=== PATIENT | female | born 1945 | race Caucasian/White ===

== ENCOUNTER 2016-12-03 06:36 | Day surgery (SDC) | payer BC ==
[2016-11-29 09:37] LABS: BASOPHILS 0.6 %; BASOPHILS ABSOLUTE 0.03 10/3/uL (0.0-0.16); EOSINOPHILS 5.7 %; EOSINOPHILS ABSOLUTE 0.29 10/3/uL (0.0-0.53); HEMATOCRIT 25.6 % (36.0-48.0); HEMOGLOBIN 8.4 g/dL (12.0-16.0); IMMATURE GRANULOCYTES 0.2 %; IMMATURE GRANULOCYTES ABSOLUTE 0.01 10/3/uL (0.0-0.11); LYMPHOCYTES 16.7 %; LYMPHOCYTES ABSOLUTE 0.85 10/3/uL (0.67-4.30); MANUAL DIFF NO %; MEAN CORPUS HGB CONC 32.8 g/dL (32.0-36.0); MEAN CORPUSCULAR HEMOGLOB 30.5 pg (26.0-34.0); MEAN CORPUSCULAR VOLUME 93.1 fL (80-100); MEAN PLATELET VOLUME 9.3 fL (9.2-13.0); MONOCYTES 14.3 %; MONOCYTES ABSOLUTE 0.73 10/3/uL (0.21-1.20); NEUTROPHILS 62.5 %; NEUTROPHILS ABSOLUTE 3.19 10/3/uL (2.02-8.40); PLATELET COUNT 327 10/3/uL (150-400); RED CELL COUNT 2.75 10/6/uL (4.0-5.6); WHITE BLOOD CELLS 5.1 10/3/uL (4.5-10.5)
[2016-11-29 10:02] LABS: BUN (BLOOD UREA NITROGEN) 25 MG/DL (6-23); CALCIUM, SERUM 8.8 MG/DL (8.5-10.4); CHLORIDE, SERUM 103 MMOL/L (96-112); CO2 (CARBON DIOXIDE) 23 MMOL/L (24-34); CREATININE 1.78 MG/DL (0.55-1.02); GFR AFRICAN AMERICAN 32 ML/MIN (>=60); GFR NON AFRICAN AMERICAN 28 ML/MIN (>=60); GLUCOSE, SERUM 113 MG/DL (60-99); POTASSIUM, SERUM 4.2 MMOL/L (3.5-5.3); SODIUM, SERUM 136 MMOL/L (135-148)
--- NOTE | ~2016-12-03 | OP ---
[facility] Of [facility] [address] [facility] [place]. [address] NAME: HANH SALGUERO : 43 STATUS : REG [facility]#: [id number] AGE: 71 ADM/REG DATE : 12/03/16 MR#: [id number] REPORT SERV DATE: 12/03/16 DICTATED BY: OMERO ANN DATE: 12/03/16 REPORT STATUS : Draft TRANSCRIBED BY: MODL DATE: 12/03/16 DATE OF PROCEDURE: 12/03/2016 SERVICE: Otolaryngology. SURGEON: Omero Ann MD. PREOPERATIVE DIAGNOSIS: Possible tracheal stenosis. POSTOPERATIVE DIAGNOSES: 1. Distal left mainstem and tracheal stenosis. 2. 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 PROCEDURES PERFORMED: 1. Direct laryngoscopy. 2. Rigid bronchoscopy. 3. Balloon dilation using a 14-mm ACCLARENT balloon. INDICATIONS FOR PROCEDURE: The patient is a 71-year-old female with history of right upper lung cancer, who has undergone right upper lobectomy as well as radiation therapy. She developed the sensation of something stuck in her throat, and biphasic stridor over the last year. She has been evaluated by Pulmonology with indications that she has dynamic airway collapse. Recent dilation this past June improved her symptoms for approximately one month. She presents again for surgical evaluation to map possible obstruction and for intervention. ANESTHESIA: General endotracheal with 6.0 endotracheal tube. ESTIMATED BLOOD LOSS: Minimal. RETAINED ITEMS: None. COMPLICATIONS: None. DESCRIPTION OF PROCEDURE: The patient was identified in the preoperative holding where informed consent was ensured. She was brought to the operating room and placed on the operating table in supine position. General endotracheal anesthesia was induced with the 6.0 ET tube without difficulty. A time-out was performed to identify the patient and discuss operative plan. The head of the bed was turned 90 degrees to facilitate access to the head and neck. A Dedo laryngoscope was inserted in the patient's oral cavity. A full upper airway exam was ensued with no evidence of lesions or masses. The vocal folds were brought into view and the patient was suspended from the Bryant tray. A rigid Ngo telescope was then inserted into the oral cavity and passed through the vocal folds. This was passed distally to the Record Of Operation [facility] [address] [facility] [place]. [address] NAME: AHNH SALGUERO : 43 STATUS : REG [facility] PAT#: [id number] AGE: 71 ADM/REG DATE : 12/03/16 MR#: [id number] REPORT SERV DATE: 12/03/16 DICTATED BY: OMERO ANN DATE: 12/03/16 REPORT STATUS : Draft TRANSCRIBED BY: MODL DATE: 12/03/16 justus, where there was evidence of left main stem stenosis. The mid trachea appeared to be widely patent. The subglottis was also widely patent with no evidence of significant scar tissue or obstruction. The supraglottis and vocal folds also appeared normal. The patient was allowed to spontaneously breathe with evidence of approximately a 2 cm segment of dynamic collapse just inferior to the vocal folds. This was not obstructive, and did not appear to be contributing significantly to her symptoms. Based on the aforementioned symptoms; however, decision was made to proceed with a therapeutic dilation in the subglottis. A 14-mm ACCLARENT balloon was inserted under direct visualization and inflated. This was kept in place for approximately 1 minute. It was deflated and withdrawn. The patient was then suctioned of all secretions. Topical anesthetic was applied to the vocal folds. All equipment was withdrawn from the oral cavity. The endotracheal tube was kept in place and once again secured to the patient's right cheek. The patient was turned over to Anesthesia for awakening and extubation. She was transported to the PACU in stable condition. DISPOSITION: The patient will follow up in approximately one week. I think she will need a Pulmonology referral for additional evaluation of distal airway stenosis. We did discuss the possibility of tracheostomy for upper airway dynamic collapse, but this would be my last resort after all other avenues have been exhausted. /FEI Omero Ann MD / [id number] CC: MD Merissa Saldaña M.D.
[~2016-12-03 06:36] MED LIST: DUONEB INH; FISH-EPA1000 MG PO; HUMI PO; LEVOTHYROXIN75 MCG PO; NORCO1 TA1 PO; SINGULAIR1 PO; ZOCOR20 PO
== END 2016-12-03 12:21 | disposition home or self-care (01) ==
LOC: SDC 06:36
PROVIDERS: Otolaryngology
PROC: 0B718ZZ Dilation of Trachea, Via Natural or Artificial Opening Endoscopic (ICD-10-PCS; 2016-12-03)
PROC: 0CJS8ZZ Inspection of Larynx, Via Natural or Artificial Opening Endoscopic (ICD-10-PCS; principal; 2016-12-03 08:15)
DX: J98.4 Other disorders of lung (principal); J39.8 Other specified diseases of upper respiratory tract; J38.3 Other diseases of vocal cords; J44.9 Chronic obstructive pulmonary disease, unspecified; E03.9 Hypothyroidism, unspecified; E78.00 Pure hypercholesterolemia, unspecified; D64.9 Anemia, unspecified; Z85.118 Personal history of other malignant neoplasm of bronchus and lung; Z92.21 Personal history of antineoplastic chemotherapy; Z92.3 Personal history of irradiation; Z88.8 Allergy status to other drugs, medicaments and biological substances; Z79.899 Other long term (current) drug therapy; Z87.891 Personal history of nicotine dependence; Z98.41 Cataract extraction status, right eye; Z98.42 Cataract extraction status, left eye; Z96.1 Presence of intraocular lens; Z97.2 Presence of dental prosthetic device (complete) (partial); Z86.19 Personal history of other infectious and parasitic diseases; Z90.2 Acquired absence of lung [part of]; Z98.890 Other specified postprocedural states
CPT/HCPCS: 80048; 85025; 93005; A9270-GY; C1725; C1726; J0330; J2370; J2405; J2710; J3010; P9047